=== PATIENT | female | born 2000 | race Two or more races ===

== ENCOUNTER → 2025-04-23 | Outpatient (CLI) | payer MEDICAID, SELFPAY ==
--- NOTE | 2025-04-23 10:30 | XR_ITS ---
Examination: Pelvic ultrasound, transabdominal, complete Technique: Transabdominal ultrasound of the pelvis performed using grayscale imaging Date and time of exam: April 23, 2025, 1031 hours INDICATIONS: Amenorrhea 10 months FINDINGS: Uterus 6.4 cm endometrial stripe 10 mm No uterine mass or intrauterine gestation Right ovary 3.7 x 4.2 cm arterial flow 24 x 20 mm cyst Left ovary 3.1 x 3.0 cm arterial flow IMPRESSION: Right ovarian simple cyst 20 x 20 x 24 mm
--- NOTE | 2025-04-23 10:30 | XR_ITS ---
Examination: Breast ultrasound complete, bilateral Date and time of exam: April 23, 2025, 1037 hours INDICATIONS: Bilateral breast lumps noticed 2 weeks ago by patient Technique: Real-time grayscale ultrasonographic imaging bilateral breasts, including all 4 quadrants as well as nipple retroareolar and axillary regions. Findings: Sonographic images right and left breast demonstrate no cystic or solid masses IMPRESSION: BI-RADS Category 1: Negative study
== END | disposition home or self-care (01) ==
LOC: CDIM 10:04
PROVIDERS: PCP Nurse Practitioner Family; Referring Provider Nurse Practitioner Family; Visit Provider Nurse Practitioner Family
DX: R92.313 Mammographic fatty tissue density, bilateral breasts (principal); N83.291 Other ovarian cyst, right side
CPT/HCPCS: 76641; 76856